=== PATIENT | male | born 1985 | race African-American/Black ===

== ENCOUNTER 2017-05-06 18:26 | Emergency (ER) | payer OTHER ==
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
== END 2017-05-06 22:50 | disposition home or self-care (01) ==
LOC: CED 18:26
DX: F23 Brief psychotic disorder (principal)
CPT/HCPCS: 70450; 99284

== ENCOUNTER 2017-05-08 10:00 | Inpatient (IN) | payer OTHER ==
--- NOTE | ~2017-05-08 | PN ---
Unit #: [id number] #: [id number] Patient: LACHO URBINA [id number] [facility] [address] [place] [address] [id number] I MR#: [id number] NAME: LACHO URBINA ROOM: [facility] Age: 31 Sex: M Admission Date: 05/08/2017 : 1985 Attending Physician: Abhilash Hill M.D. Admitting Physician: Abhilash Hill M.D. Primary Care Physician: Primary Care Physician Stella FAY NOTES DATE OF SERVICE: 05/09/2017 DISCUSSION Lacho Urbina is a 31-year-old male, seen on 05/09/2017. The patient interviewed, chart reviewed, and obtained information from nursing staff. The patient was compliant and cooperative, mood, sad and dysphoric, pleasant, cooperative during interview. Reported depression at this time, but still having those wired thought process, paranoia, mood lability. Complete review of systems unremarkable. MENTAL STATUS EXAMINATION General appearance, the patient dressed casually. Attention span and concentration, fair. Oriented in place and person. Mood and affect, labile. Speech, monotone. Thought process, concrete. The patient denied any thoughts of harming self or others. Recent and remote memory, poor. Insight and judgment, poor. DIAGNOSIS Bipolar mood disorder, not otherwise specified. ASSESSMENT AND PLAN Advised to continue with current medication combination of Zyprexa and trazodone. If needed, consider Prozac. Please feel free to call if any questions. We will continue to follow the patient. Dictated by... Suzette Olivas/chaka TD: 05/09/2017 16:01 JOB #: [id number] Unit #: [id number] #: [id number] Patient: LACHO URBINA PROGRESS NOTES Page 1 of 1 X Abhilash Hill MD PROGRESS NOTE
--- NOTE | ~2017-05-08 | PN ---
Unit #: [id number] #: [id number] Patient: LACHO URBINA [id number] [facility] [address] [place] [address] [id number] I MR#: [id number] NAME: LACHO URBINA ROOM: [facility] Age: 31 Sex: M Admission Date: 05/08/2017 : 1985 Attending Physician: Abhilash Hill M.D. Admitting Physician: Abhilash Hill M.D. Primary Care Physician: Primary Care Physician Stella FAY NOTES DATE OF SERVICE: 05/10/2017 DISCUSSION Mr. Lacho Urbina is a 31-year-old male, seen on 05/10/2017. The patient interviewed, chart reviewed, and obtained information from nursing staff. The patient reported that he was able to sleep good now. Mood is sad, dysphoric, flat affect, and guarded. The patient was able to maintain safe behavior. Denied any complaints. DIAGNOSTIC STUDIES LABORATORY RESULTS: The patient's labs showed urine drug screen negative. UA unremarkable except 1+ protein. CMP, unremarkable. CBC, unremarkable. IMAGING STUDIES: The patient's CT of his head showed normal CT scan. REVIEW OF SYSTEMS A complete review of systems is unremarkable. MENTAL STATUS EXAMINATION General appearance; the patient dressed casually. Attention span and concentration, fair. Oriented in place and person. Mood and affect; sad, dysphoric, and anxious. Speech, regular rate. Thought process, goal directed. The patient denied any thoughts of harming self or others. Recent and remote memory, poor. Insight and judgment, poor. DIAGNOSES 1. Mood disorder, not otherwise specified. 2. Rule out bipolar mood disorder. ASSESSMENT AND PLAN Advised to continue with current medication and therapeutic protocol. If needed, consider further adjustment of medication. Dictated by... Suzette Olivas/chaka TD: 05/10/2017 16:37 JOB #: [id number] Unit #: [id number] #: [id number] Patient: LACHO URBINA SUMEET NOTES Page 1 of 1 X Abhilash Hill MD PROGRESS NOTE
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
--- NOTE | ~2017-05-08 | CO ---
Unit #: [id number] #: [id number] Patient: LACHO URBINA [id number] [facility] [address] [place] [address] [id number] I MR#: [id number] NAME: LACHO URBINA ROOM: [facility] Age: 31 Sex: M Admission Date: 05/08/2017 : 1985 Attending Physician: Abhilash Hill M.D. Primary Care Physician: Primary Care Physician No Consultation Date: 05/09/2017 CONSULTATION REPORT HISTORY OF PRESENT ILLNESS Lacho reports that yesterday after he arrived, he had some chest pain and it lasted the whole day. The pain felt like pressure and tightness and he also had numbness and tingling in his left arm as well as back pain. He does report a history of chronic back pain and this felt the same as that. However, he has never had any chest pain in the past. He did not have any pain in his neck or jaw. No nausea or vomiting. He reports that the pain did not get worse with exertion. He has a history of high blood pressure and has been taking lisinopril for the past 3 months. He has also been dealing with a lot of stress recently. He and his moved from [place] and his is currently . Blood pressures here have been 157/104 and 137/92. No numbness or tingling in his legs. No shortness of air and no other complaints. PHYSICAL EXAM CARDIAC: Regular rate and rhythm. No murmur, gallop or rub. RESPIRATORY: Clear to auscultation bilaterally. ASSESSMENT/PLAN 1. Hypertension. Lisinopril has been continued 20 mg p.o. daily. Will also add clonidine 0.1 mg q. 12 hours p.r.n. blood pressures greater than 140/90. 2. Chest pain. Will repeat an EKG in the morning. If chest pain returns will send patient to ER. Dictated by... Yvonne TopeteRUbaldo. JEFFERSON/doe TD: 05/09/2017 17:16 JOB #: [id number] Unit #: [id number] #: [id number] Patient: LACHO URBINA CONSULTATION REPORT Page 1 of 1 X BEBE ROCHA APRN CONSULTATION REPORT
--- NOTE | ~2017-05-08 | EKG ---
PATIENT: CESAR URBINA UNIT #: [id number] Ventricular Rate: 92 BPM Atrial Rate: 92 BPM P-R Interval: 176 ms QRS Duration: 88 ms Q-T Interval: 346 ms QTC Calculation(Bezet): 427 ms P [place]: 61 degrees Calculated R [place]: 60 degrees Calculated T [place]: 13 degrees Diagnosis Line: Normal sinus rhythm with sinus arrhythmia Diagnosis Line: Left ventricular hypertrophy Diagnosis Line: Nonspecific T wave abnormality Diagnosis Line: Abnormal ECG Diagnosis Line: No previous ECGs available Diagnosis Line: Confirmed by CHAYA WALKER MD ([id number]) on Diagnosis Line: 05/10/2017 2:48:34 PM INTERPRETING MD: GEOFFREY
--- NOTE | ~2017-05-08 | HP ---
Unit #: [id number] #: [id number] Patient: LACHO URBINA [id number] [place] [address] [id number] MR#: [id number] NAME: LACHO URBINA ROOM: [facility] Age: 31 Sex: M Admission Date: 05/08/2017 : 1985 Attending Physician: Abhilash Hill M.D. Admitting Physician: Abhilash Hill M.D. Primary Care Physician: Primary Care Physician No HISTORY AND PHYSICAL HISTORY OF PRESENT ILLNESS Lacho is a 31-year-old male, admitted to [facility] with depression and increased anxiety. PAST MEDICAL HISTORY 1. Asthma. 2. High blood pressure. PAST SURGICAL HISTORY Nothing reported. ALLERGIES No known drug allergies. SOCIAL HISTORY He does not smoke, drink alcohol, or use illicit drugs. FAMILY HISTORY Medically noncontributory. REVIEW OF SYSTEMS CONSTITUTIONAL: No fever or chills. HEENT: Denies any sore throat, ear pain or runny nose. CARDIOVASCULAR: Denies chest pain, irregular heart rhythm or palpitations. CHEST: Denies shortness of breath or cough. No hemoptysis. GASTROINTESTINAL: Denies nausea, vomiting, diarrhea or chronic constipation. ENDOCRINE: Denies history of increased thirst or urination. No recent significant weight loss or gain. GENITOURINARY: Denies dysuria, frequency, or hematuria. SKIN: Denies any rashes. HEMATOLOGIC: Denies history of increased bleeding or bruising. MUSCULOSKELETAL: Denies any hot, swollen joints. No generalized muscle pain. NEUROLOGIC: Denies problems with vision or speech. No frequent, severe headaches. No numbness, tingling or weakness in any extremities. Denies loss of bladder or bowel control. CURRENT MEDICATIONS 1. Zyprexa 5 mg q.h.s. 2. Lioresal 10 mg daily 3. Zestril 20 mg daily 4. Desyrel 50 mg q.h.s. Unit #: [id number] #: [id number] Patient: LACHO URBINA 5. Symbicort b.i.d. 6. Ibuprofen p.r.n. 7. Milk of magnesia p.r.n. 8. Maalox p.r.n. 9. Tylenol p.r.n. PHYSICAL EXAMINATION GENERAL: Alert, well-nourished, no apparent distress. VITAL SIGNS: Blood pressure 136/92, heart rate 80, respirations 16, temperature 98.6. WEIGHT: 177 pounds. HEIGHT: 5 feet 7 inches. SKIN: Warm and dry without rash or lesion. HEENT: Normocephalic. TMs not viewed. Oral and nasal passages clear. Conjunctivae clear. PERRLA. EOMs intact. NECK: Supple without lymphadenopathy or thyromegaly. HEART: Regular rate and rhythm without murmur. LUNGS: Clear. ABDOMEN: Soft, nontender. : Not done. EXTREMITIES: No evidence of cyanosis, clubbing or edema. Moves all without focal deficit. NEUROLOGICAL: Grossly within normal limits. Cranial Nerves: II: Visual sanchez are intact. III, IV AND : Extraocular movements are intact. Pupils are equal, round and reactive to light. V: Facial sensation is grossly normal. VII: Facial movements and expression are normal. VIII: Auditory acuity grossly intact. IX, X: Uvula is midline. Phonation is normal. XI: Patient shrugs shoulders and turns head normally. XII: Tongue protrudes in the midline. Sensory and Motor Function: Sensory and motor sensation is grossly normal. Motor: moves all extremities well. Coordination: Gait is normal. Deep Tendon Reflexes: Intact. IMPRESSION Psychiatric admission. RECOMMENDATIONS Psychiatric, per psychiatrist. MEDICAL I see no contraindications to participating in facility's activities. MEDICAL PROGNOSIS Good. MEDICAL CONDITION Stable. Dictated by... Na Foster P.A.-C. for Suzette Samayoa/shahid TD: 05/09/2017 12:53 Unit #: [id number] #: [id number] Patient: LACHO URBINA JOB #: [id number] HISTORY AND PHYSICAL Page 1 of 1 X Na Foster HISTORY AND PHYSICAL
--- NOTE | ~2017-05-08 | DS ---
Unit #: [id number] #: [id number] Patient: CESAR URBINA [id number] [facility] [address] [place] [address] [id number] MR#: [id number] NAME: CESAR URBINA ROOM: [facility] Age: 31 Sex: M Admission Date: 05/08/2017 : 1985 Discharge Date: 05/11/2017 Attending Physician: Abhilash Hill M.D. Primary Care Physician: Primary Care Physician No DISCHARGE SUMMARY REASON FOR ADMISSION Depression and psychosis. DIAGNOSTIC STUDIES LABORATORY RESULTS: Unremarkable. HOSPITAL COURSE The patient was admitted to inpatient unit on 05/08/2017 and discharged on 05/11/2017. The patient was treated on the inpatient unit with expressive therapy, structured milieu, group therapy, individual therapy, medication management. The patient was responsive to treatment. Subsequently, the patient was discharged with a plan to follow up in outpatient program. DISCHARGE MEDICATIONS 1. Trazodone 50 mg at bedtime p.r.n. for sleep. 2. Zyprexa 5 mg at bedtime for mood stabilization/psychosis. DISCHARGE DIAGNOSES Psychiatric: Mood disorder, not otherwise specified, F32.9; rule out bipolar mood disorder, recurrent, depressed, chronic, F31.9; posttraumatic stress disorder, chronic; alcohol use disorder, moderate, F10.20. Secondary diagnosis: Deferred. Medical diagnosis: History of asthma, hypertension, and stressors. Stressors: Psychosocial stressors. DISCHARGE INSTRUCTIONS The patient is to follow up in outpatient clinic as per aids social worker. CONDITION ON DISCHARGE The patient was pleasant and cooperative. Denied any psychotic symptom or any suicidal ideation. PROGNOSIS Guarded. DIET AND ACTIVITY As tolerated. Unit #: [id number] #: [id number] Patient: CESAR URBINA Dictated by... Abhilash Hill M.D. SZC/perl TD: 05/11/2017 13:20 JOB #: [id number] DISCHARGE SUMMARY Page 1 of 1 X Abhilash Hill MD X DISCHARGE SUMMARY
[2017-05-09 09:56] LABS: BASOPHIL# 0.1 X10e3 (0-0.3); BASOPHIL% 0.5 % (0-2.5); EOSINOPHIL# 0.1 X10e3 (0-0.7); EOSINOPHIL% 1.3 % (0.0-7.0); HEMOGLOBIN 15.1 gm/dL (13.0-16.0); LYMPHOCYTE% 26.7 % (17.0-45.0); MEAN CELL VOLUME 89.5 FL (83-96); MEAN CORPUSCULAR HEMOGLOBIN 29.3 PG (28-34); MEAN CORPUSCULAR HGB CONC 32.8 g/dL (30-36); MEAN PLATELET VOLUME 9.6 FL (6.5-11.5); MONOCYTE% 8.8 % (3.0-12.0); NEUTROPHIL% 62.7 % (40-75); PLATELET COUNT 309 X10e3 (140-420); RED BLOOD COUNT 5.14 X10e (3.90-5.60); RED CELL DISTRIBUTION WIDTH 13.6 % (11.0-15.5); WHITE BLOOD COUNT 11.1 X10e3 (4.0-10.5)
[2017-05-09 10:00] LABS: DIFF IND NO
[2017-05-09 10:07] LABS: ALBUMIN SERUM 4.6 g/dL (3.5-5.0); BILIRUBIN,TOTAL 1.4 mg/dL (0.2-2.0); CALCIUM SERUM 9.8 mg/dL (8.4-10.2); GLOM FILT RATE Estimated 117.4 mL/min (>60); POTASSIUM 4.1 mmol/L (3.5-5.1); PROTEIN TOTAL SERUM 7.7 g/dL (6.0-8.3)
[2017-05-09 10:57] LABS: URINE APPEARANCE CLOUDY; URINE BLOOD NEG (NEG); URINE COLOR YELLOW; URINE GLUCOSE NORM (NORM); URINE KETONE 1+ (NEG); URINE LEUKOCYTE ESTERASE NEG (NEG); URINE NITRATE NEG (NEG); URINE PROTEIN 1+ (NEG); URINE UROBILINOGEN NORM (NORM)
[2017-05-09 11:07] LABS: URINE BILIRUBIN NEG (NEG)
[2017-05-09 11:24] LABS: AMPHETAMINE NEG (NEG); BARBITURATES NEG (NEG); BENZODIAZEPINES NEG (NEG); COCAINE NEG (NEG); MARIJUANA NEG (NEG); OPIATES NEG (NEG); TRICYCLIC ANTIDEPRESSANTS NEG (NEG); U METHADONE NEG (NEG)
== END 2017-05-11 11:30 | disposition home or self-care (01) | DRG 885 ==
LOC: P1E 12:55
PROVIDERS: Psychiatry & Neurology Psychiatry
DX: F39 Unspecified mood [affective] disorder (principal); I10 Essential (primary) hypertension; F43.12 Post-traumatic stress disorder, chronic; J45.909 Unspecified asthma, uncomplicated; G89.29 Other chronic pain; Z81.8 Family history of other mental and behavioral disorders; Z81.4 Family history of other substance abuse and dependence; Z62.819 Personal history of unspecified abuse in childhood; R07.9 Chest pain, unspecified; F31.9 Bipolar disorder, unspecified
CPT/HCPCS: 80053; 80307; 81003; 85025; 93005

== ENCOUNTER 2017-06-25 17:40 | Emergency (ER) | payer OTHER ==
--- NOTE | ~2017-06-25 | CR230 ---
[facility] A Service of [facility] RADIOLOGY TEXT RESULTS PATIENT: CESAR URBINA LOCATION: SED : [birth year] UNIT #: [id number] AGE: [address]: JANES DELGADILLO SEX: M ORDER DR: [id number] [place] [id number] E MR#: [id number] Acc #: [id number] NAME: CESAR URBINA : 1985 SEX: M STUDY DATE/TIME: 06/25/2017 18:18 UNIT: SED ROOM: STUDY DESCRIPTION: CR Shoulder Min 2 View Rt Attending Physician: Janes Delgadillo Ordering Physician: Karlie Giles Pa-C Primary Care Physician: Gale Galvan Aprn MEDICAL IMAGING REPORT This report is preliminary unless electronic signature is present. EXAM Right shoulder series, 06/25/17. HISTORY Pain. Right shoulder pain, right neck pain, posterior, 1 week duration. Positive Strep. 1 week ago. No known injury. FINDINGS AP, internal, and external rotation views of the right shoulder presented with transscapular view. Poor quality study. Extensive radiographic processing artifact overlying relevant anatomy. No fracture or malalignment. The visualized bony thorax is unremarkable. Cardiomediastinal contours normal in visualized extent. Visualized pulmonary parenchymal clear. Periarticular soft tissues unremarkable. Dictated by... Tobin Mercado M.D. THIS IS AN ELECTRONICALLY VERIFIED REPORT Tobin Mercado M.D. at 06/27/2017 7:36 AM Maryanne TD: 06/26/2017 08:20 JOB #: [id number] MEDICAL IMAGING REPORT Page 1 of 1
--- NOTE | ~2017-06-25 | CR58 ---
[facility] A Service of [facility] RADIOLOGY TEXT RESULTS PATIENT: CESAR URBINA LOCATION: SED : [birth year] UNIT #: [id number] AGE: [address]: JANES DELGADILLO SEX: M ORDER DR: [id number] [place] [id number] E MR#: [id number] Acc #: [id number] NAME: CESAR URBINA : 1985 SEX: M STUDY DATE/TIME: 06/25/2017 18:18 UNIT: SED ROOM: STUDY DESCRIPTION: CR Cervical Spine 2 or 3 Views Attending Physician: Janes Delgadillo Ordering Physician: Karlie Giles Pa-C Primary Care Physician: Gale Galvan Aprn MEDICAL IMAGING REPORT This report is preliminary unless electronic signature is present. EXAM Cervical spine series, 06/25/2017, 1818 hours. CLINICAL HISTORY Right neck pain, right posterior shoulder pain for 1 week. History of strep infection 1 week ago. No known injury. COMPARISON None. FINDINGS AP, lateral and open mouth views demonstrate C1 through the top of T2. There is no prevertebral soft tissue swelling. No fracture, malalignment or vertebral body height loss. IMPRESSION Normal cervical spine series. Dictated by... Teresa Vazquez M.D. THIS IS AN ELECTRONICALLY VERIFIED REPORT Teresa Vazquez M.D. at 06/26/2017 9:08 AM MONISHA/nitish TD: 06/26/2017 08:08 JOB #: [id number] MEDICAL IMAGING REPORT Page 1 of 1
[2017-06-25] MEDS ORDERED: BREO ELLIPTA 11 EACH (17:49)
[2017-06-25] MEDS ORDERED: LISINOPRIL (17:49)
== END 2017-06-25 19:22 | disposition home or self-care (01) ==
LOC: SED 17:40
DX: S16.1XXA Strain of muscle, fascia and tendon at neck level, initial encounter (principal); S46.911A Strain of unspecified muscle, fascia and tendon at shoulder and upper arm level, right arm, initial encounter; I10 Essential (primary) hypertension; J45.909 Unspecified asthma, uncomplicated; X58.XXXA Exposure to other specified factors, initial encounter; Y92.009 Unspecified place in unspecified non-institutional (private) residence as the place of occurrence of the external cause
CPT/HCPCS: 72040; 73030; 96372; 99283; J1885